=== PATIENT | female | born 1950 | race Caucasian/White ===

== ENCOUNTER 2018-04-18 07:49 | Inpatient (IN) | payer OTHER ==
[2018-04-18] MEDS: IPRATRPIUM/ALBUTEROL 0.5/2.5MG 3 ML NEBU. NEB ×6 (08:12→20:00)
[2018-04-18] MEDS: DEXAMETHASONE SOD PHOS 20 MG/5 ML VIAL. IM (08:47)
[2018-04-18 09:04] LABS: ADD MAN DIFF? NO
[2018-04-18 09:08] LABS: BASO % 0 % (0-3); EOS % 0 % (0-3); HEMATOCRIT 40.8 % (36.0-47.0); HEMOGLOBIN 13.8 g/dL (12.0-15.5); LYMPH # 0.5 x10^3/uL (1.0-4.8); LYMPH % 9 % (24-48); MEAN CORPUSCULAR HEMOGLOBIN 29 pg (25-35); MEAN CORPUSCULAR HGB CONC 34 g/dL (31-37); MEAN CORPUSCULAR VOLUME 86 fL (79-100); MONO # 0.5 x10^3/uL (0.0-1.1); MONO % 8 % (0-9); NEUT # 4.7 x10^3uL (1.8-7.7); NEUT % 82 % (31-73); PLATELET COUNT 255 x10^3/uL (140-400); RED BLOOD COUNT 4.74 x10^6/uL (3.50-5.40); RED CELL DISTRIBUTION WIDTH 14.7 % (11.5-14.5); WHITE BLOOD COUNT 5.7 x10^3/uL (4.0-11.0)
[2018-04-18 09:20] LABS: ANION GAP 9 (6-14); BLOOD UREA NITROGEN 5 mg/dL (7-20); BUN/CREATININE RATIO 7 (6-20); CALCIUM 8.6 mg/dL (8.5-10.1); CARBON DIOXIDE 26 mmol/L (21-32); CHLORIDE 93 mmol/L (98-107); CREATININE 0.7 mg/dL (0.6-1.0); GLUCOSE 162 mg/dL (70-99); POTASSIUM 3.5 mmol/L (3.5-5.1); SODIUM 128 mmol/L (136-145)
[2018-04-18 09:28] LABS: ALBUMIN 3.5 g/dL (3.4-5.0); ALK PHOS 94 U/L (46-116); ALT (SGPT) 19 U/L (14-59); AST (SGOT) 22 U/L (15-37); TOTAL BILIRUBIN 0.3 mg/dL (0.2-1.0); TOTAL PROTEIN 7.1 g/dL (6.4-8.2)
[2018-04-18] MEDS: AZITHRMYCN 500MG IVPB FOR OMNI 250 ML IV (10:20)
[2018-04-18] MEDS ORDERED: guaiFENesin DM 200MG/20MG 10 ML SYRUP PO (11:00)
[2018-04-18] MEDS ORDERED: IPRATRPIUM/ALBUTEROL 0.5/2.5MG 3 ML NEBU. NEB (12:00)
[2018-04-18] MEDS ORDERED: ALBUTEROL SULFATE 2.5 MG/3 ML NEBU. NEB (13:15)
[2018-04-18] MEDS: CYCLOBENZAPRINE 10 MG TABLET. PO ×2 (14:00→20:37)
[2018-04-18] MEDS: traMADol 50 MG TABLET PO ×2 (14:00→20:32)
[2018-04-18] MEDS: methylPREDNISolone SOD SUCC PF 40 MG/ML VIAL. IV ×2 (14:04→20:32)
[2018-04-18] MEDS: BENZONATATE 100 MG CAPSULE. PO ×2 (14:04→20:31)
[2018-04-18] MEDS: guaiFENesin DM 200MG/20MG 10 ML SYRUP PO ×2 (16:43→20:31)
[2018-04-18] MEDS: BUDESONIDE 0.5 MG/2 ML NEBU. NEB (20:00)
[2018-04-18] MEDS: HYDROcodone/APAP 5/325MG 1 TAB TABLET PO (22:48)
[2018-04-19] MEDS: IPRATRPIUM/ALBUTEROL 0.5/2.5MG 3 ML NEBU. NEB ×7 (00:03→23:29)
[2018-04-19] MEDS: methylPREDNISolone SOD SUCC PF 40 MG/ML VIAL. IV ×4 (06:03→22:27)
[2018-04-19] MEDS: ONDANSETRON PF 4 MG/2 ML VIAL. IV ×3 (07:16→19:36)
[2018-04-19] MEDS: BUDESONIDE 0.5 MG/2 ML NEBU. NEB ×2 (07:38→20:20)
[2018-04-19] MEDS: traMADol 50 MG TABLET PO ×3 (08:32→19:42)
[2018-04-19] MEDS: BENZONATATE 100 MG CAPSULE. PO ×3 (08:33→20:11)
[2018-04-19] MEDS: CYCLOBENZAPRINE 10 MG TABLET. PO ×3 (08:33→20:11)
[2018-04-19] MEDS ORDERED: NON FORMULARY ITEM (Tiotropium Bromide (Spiriva) 1 CAP) IH (09:00)
[2018-04-19] MEDS: HYDROcodone/APAP 5/325MG 1 TAB TABLET PO ×4 (09:13→20:11)
[2018-04-19] MEDS: cefTRIAXone IV Push 1 GM VIAL. IVP (09:13)
[2018-04-19] MEDS: guaiFENesin DM 200MG/20MG 10 ML SYRUP PO ×4 (13:00→20:11)
[2018-04-19] MEDS: MONTELUKAST SODIUM 10 MG TABLET. PO (20:10)
[2018-04-19] MEDS: LACTOBACILLUS RHAMNOSUS GG 1 CAPSULE. PO (20:10)
[2018-04-19] MEDS: ALPRAZolam 0.25 MG TABLET PO (20:11)
[2018-04-20] MEDS: IPRATRPIUM/ALBUTEROL 0.5/2.5MG 3 ML NEBU. NEB ×5 (04:00→19:24)
[2018-04-20] MEDS: BUDESONIDE 0.5 MG/2 ML NEBU. NEB ×2 (06:41→19:24)
[2018-04-20] MEDS: traMADol 50 MG TABLET PO (08:00)
[2018-04-20] MEDS: methylPREDNISolone SOD SUCC PF 40 MG/ML VIAL. IV ×3 (08:55→21:17)
[2018-04-20] MEDS: cefTRIAXone IV Push 1 GM VIAL. IVP (08:55)
[2018-04-20] MEDS: BENZONATATE 100 MG CAPSULE. PO ×3 (08:56→21:16)
[2018-04-20] MEDS: LACTOBACILLUS RHAMNOSUS GG 1 CAPSULE. PO ×2 (08:56→21:15)
[2018-04-20] MEDS: CYCLOBENZAPRINE 10 MG TABLET. PO ×3 (08:56→21:16)
[2018-04-20] MEDS: guaiFENesin DM 200MG/20MG 10 ML SYRUP PO ×4 (08:56→21:16)
[2018-04-20] MEDS: NAPROXEN 500 MG TABLET PO (16:30)
[2018-04-20] MEDS ORDERED: IBUPROFEN 400 MG TABLET. PO (17:00)
[2018-04-20] MEDS: cloNIDine HCL 0.1 MG TABLET PO (19:45)
[2018-04-20] MEDS: MONTELUKAST SODIUM 10 MG TABLET. PO (21:15)
[2018-04-20] MEDS: HYDROcodone/APAP 5/325MG 1 TAB TABLET PO (21:16)
[2018-04-21] MEDS: TEMAZEPAM 7.5 MG CAPSULE PO (00:11)
[2018-04-21] MEDS: ALPRAZolam 0.25 MG TABLET PO ×2 (00:11→22:12)
[2018-04-21] MEDS: IPRATRPIUM/ALBUTEROL 0.5/2.5MG 3 ML NEBU. NEB ×7 (04:00→23:18)
[2018-04-21] MEDS: methylPREDNISolone SOD SUCC PF 40 MG/ML VIAL. IV ×3 (06:17→22:18)
[2018-04-21] MEDS: BUDESONIDE 0.5 MG/2 ML NEBU. NEB ×2 (06:57→20:12)
[2018-04-21] MEDS: LACTOBACILLUS RHAMNOSUS GG 1 CAPSULE. PO ×2 (08:17→20:31)
[2018-04-21] MEDS: CYCLOBENZAPRINE 10 MG TABLET. PO ×3 (08:17→20:32)
[2018-04-21] MEDS: BENZONATATE 100 MG CAPSULE. PO ×3 (08:17→20:31)
[2018-04-21] MEDS: guaiFENesin DM 200MG/20MG 10 ML SYRUP PO ×4 (08:17→20:32)
[2018-04-21] MEDS: cefTRIAXone IV Push 1 GM VIAL. IVP (08:18)
[2018-04-21] MEDS: ALPRAZolam 0.5 MG TABLET PO (12:26)
[2018-04-21] MEDS: NICOTINE 21MG PATCH. TD (13:00)
[2018-04-21] MEDS: MONTELUKAST SODIUM 10 MG TABLET. PO (20:32)
[2018-04-21] MEDS: HYDROcodone/APAP 5/325MG 1 TAB TABLET PO (22:12)
[2018-04-22] MEDS: IPRATRPIUM/ALBUTEROL 0.5/2.5MG 3 ML NEBU. NEB ×6 (03:38→23:00)
[2018-04-22 05:27] LABS: ANION GAP 3 (6-14); BLOOD UREA NITROGEN 16 mg/dL (7-20); CALCIUM 8.6 mg/dL (8.5-10.1); CARBON DIOXIDE 36 mmol/L (21-32); CHLORIDE 94 mmol/L (98-107); CREATININE 0.9 mg/dL (0.6-1.0); GFR 62.8; GLUCOSE 120 mg/dL (70-99); MAGNESIUM 2.2 mg/dL (1.8-2.4); POTASSIUM 4.8 mmol/L (3.5-5.1); SODIUM 133 mmol/L (136-145)
[2018-04-22 05:37] LABS: TROPONINI < 0.017 ng/mL (0.000-0.055)
[2018-04-22 05:44] LABS: THYROID STIM HORMONE (TSH) 0.077 uIU/mL (0.358-3.74)
[2018-04-22] MEDS: methylPREDNISolone SOD SUCC PF 40 MG/ML VIAL. IV ×2 (06:05→13:57)
[2018-04-22] MEDS: BUDESONIDE 0.5 MG/2 ML NEBU. NEB ×2 (07:52→14:59)
[2018-04-22] MEDS: NICOTINE 21MG PATCH. TD (08:00)
[2018-04-22] MEDS: LACTOBACILLUS RHAMNOSUS GG 1 CAPSULE. PO ×2 (08:00→20:33)
[2018-04-22] MEDS: cefTRIAXone IV Push 1 GM VIAL. IVP (08:00)
[2018-04-22] MEDS: CYCLOBENZAPRINE 10 MG TABLET. PO ×3 (08:00→20:33)
[2018-04-22] MEDS: BENZONATATE 100 MG CAPSULE. PO ×3 (08:00→20:33)
[2018-04-22] MEDS: guaiFENesin DM 200MG/20MG 10 ML SYRUP PO ×4 (08:00→20:33)
[2018-04-22] MEDS: FLUTICASONE 50MCG/NASAL SPRAY 16GM BOTTLE. NS (08:00)
[2018-04-22] MEDS: CITALOPRAM 10 MG TABLET. PO ×2 (08:00→20:33)
[2018-04-22 12:05] LABS: FREE T4 0.96 ng/dL (0.76-1.46)
[2018-04-22] MEDS: GADOBUTROL 7.5 MMOL/7.5 ML VIAL IV (13:28)
[2018-04-22] MEDS: HYDROcodone/APAP 5/325MG 1 TAB TABLET PO (14:02)
[2018-04-22] MEDS: DOXYCYCLINE HYCLATE 100 MG TABLET PO (20:33)
[2018-04-22] MEDS: ALPRAZolam 0.25 MG TABLET PO (20:33)
[2018-04-22] MEDS: MONTELUKAST SODIUM 10 MG TABLET. PO (20:33)
[2018-04-22] MEDS: MECLIZINE HCL 12.5 MG TABLET. PO (20:48)
[2018-04-23] MEDS: IPRATRPIUM/ALBUTEROL 0.5/2.5MG 3 ML NEBU. NEB ×3 (03:20→11:17)
[2018-04-23] MEDS: BUDESONIDE 0.5 MG/2 ML NEBU. NEB (07:50)
[2018-04-23] MEDS: FLUTICASONE 50MCG/NASAL SPRAY 16GM BOTTLE. NS (07:58)
[2018-04-23] MEDS: predniSONE 20 MG TABLET PO (07:58)
[2018-04-23] MEDS: guaiFENesin DM 200MG/20MG 10 ML SYRUP PO ×2 (07:58→13:07)
[2018-04-23] MEDS: CYCLOBENZAPRINE 10 MG TABLET. PO ×2 (07:58→13:07)
[2018-04-23] MEDS: BENZONATATE 100 MG CAPSULE. PO ×2 (07:59→13:07)
[2018-04-23] MEDS: DOXYCYCLINE HYCLATE 100 MG TABLET PO (07:59)
[2018-04-23] MEDS: LACTOBACILLUS RHAMNOSUS GG 1 CAPSULE. PO (07:59)
[2018-04-23] MEDS: NICOTINE 21MG PATCH. TD (08:00)
[2018-04-23] MEDS: cloNIDine HCL 0.1 MG TABLET PO (10:57)
[2018-04-23] MEDS: ALPRAZolam 0.25 MG TABLET PO (11:36)
[2018-04-23] MEDS: LOSARTAN POTASSIUM 50 MG TABLET. PO (11:36)
[2018-04-23] MEDS: hydrALAZINE 20 MG/ML VIAL. IVP (11:38)
== END 2018-04-23 14:20 | disposition home or self-care (01) | DRG 190 ==
LOC: ER 07:49 → 6 SOUTH 09:30
DX: J44.1 Chronic obstructive pulmonary disease with (acute) exacerbation (principal); J96.01 Acute respiratory failure with hypoxia; R65.10 Systemic inflammatory response syndrome (SIRS) of non-infectious origin without acute organ dysfunction; I47.2 Ventricular tachycardia; E22.2 Syndrome of inappropriate secretion of antidiuretic hormone; J44.0 Chronic obstructive pulmonary disease with (acute) lower respiratory infection; F17.210 Nicotine dependence, cigarettes, uncomplicated; F32.9 Major depressive disorder, single episode, unspecified; F41.9 Anxiety disorder, unspecified; I10 Essential (primary) hypertension; I49.3 Ventricular premature depolarization; M19.90 Unspecified osteoarthritis, unspecified site; J20.9 Acute bronchitis, unspecified; J30.9 Allergic rhinitis, unspecified; Z82.49 Family history of ischemic heart disease and other diseases of the circulatory system; Z90.49 Acquired absence of other specified parts of digestive tract; Z99.81 Dependence on supplemental oxygen
CPT/HCPCS: 36415; 70450; 70553; 71046; 80048; 80053; 83735; 84439; 84443; 84481; 84484; 85025; 87040; 93005; 93306; 93880; 94618; 94640; 94760; 96365; 96372; 97116-GP; 97161-GP; 97165-GO; 97530-GP; 99285; 99285-25; A9585; J0360; J0456; J0690; J0696; J1100; J2405; J2920; J7512; J7620; J7626; J8597

== ENCOUNTER → 2018-07-18 | Outpatient (CLI) | payer OTHER ==
[2018-04-23 11:38] VITALS: BP 202/91
[~2018-07-18] MED LIST: ALBU0.63 NEB; ALPR0.254 PO; CITA10TA8 PO; CYCL10TA2 PO; DM H1CAP2 PO; DOXY100T PO; FLUT16SP NS; GUAI-40 PO; GUAI600T47 PO; HYDR-2758 PO; LOSA50TA2 PO; Nicotine 21MG TD; PRED20TA PO; TIOT18CA IH; TRAM50TA PO
--- NOTE | 2018-07-18 15:01 | RAD ---
EXAM: Chest CT without intravenous contrast. HISTORY: Shortness of breath. TECHNIQUE: Computed tomographic images of the chest were obtained without contrast. Multiplanar reformatting was performed. *One or more of the following individualized dose reduction techniques were utilized for this examination: 1. Automated exposure control. 2. Adjustment of the mA and/or kV according to patient size. 3. Use of iterative reconstruction technique. COMPARISON: 11/07/2007. FINDINGS: There is moderate apical predominant pulmonary emphysema with bilateral apical pleural-parenchymal scarring. There is no pneumothorax or pleural effusion. There is no infiltrate or suspicious pulmonary nodule. There is lingular and right middle lobe atelectasis or scarring. The heart is normal in size. There is aortic and coronary artery atherosclerosis. There is no lymphadenopathy. There are few small hypodense lesions within the liver, the largest of which measures 10 mm. The stability of these lesions favors a benign etiology such as cysts or hemangiomas. There is stable thickening of the left adrenal gland without a discrete nodule. There is a 4.1 cm left renal cyst. There is no suspicious osseous lesion. There is a chronic mild superior endplate compression fracture with Schmorl's node at T12. IMPRESSION: 1. Moderate pulmonary emphysema with apical pleural parenchymal scarring. 2. No acute intrathoracic finding. 3. Several small hypodense lesions within the liver. The greater than 10 year course of stability of these lesions favors a benign etiology such as cysts or hemangiomas. 4. Simple left renal cyst. Electronically signed by: Fely Wilkinson MD (07/18/2018 2:57 PM) [id number]
== END | disposition home or self-care (01) ==
LOC: CT 09:02
PROVIDERS: ATTEND Internal Medicine Pulmonary Disease
DX: J43.8 Other emphysema (principal); K76.89 Other specified diseases of liver; N28.1 Cyst of kidney, acquired; M48.54XD Collapsed vertebra, not elsewhere classified, thoracic region, subsequent encounter for fracture with routine healing; M51.44 Schmorl's nodes, thoracic region; I25.10 Atherosclerotic heart disease of native coronary artery without angina pectoris; I10 Essential (primary) hypertension; F17.210 Nicotine dependence, cigarettes, uncomplicated; Z90.49 Acquired absence of other specified parts of digestive tract; Z82.49 Family history of ischemic heart disease and other diseases of the circulatory system
CPT/HCPCS: 71250

== ENCOUNTER → 2019-09-17 | Outpatient (CLI) | payer OTHER ==
[2018-04-23 11:38] VITALS: BP 202/91
[~2019-09-17] MED LIST changes: -HYDR-2758 PO; +HYDR-2761 PO; +LOSA-73 PO; -LOSA50TA2 PO
--- NOTE | 2019-09-17 13:36 | RAD ---
Examination: CT CHEST WO CONTRAST History: Lung nodules Comparison/Correlation: 07/18/2018 CT chest without contrast, 11/07/2007 CT chest with contrast Findings: Axial images of chest were obtained without contrast. Sagittal and coronal reformatted images were provided. Emphysematous bones or lung brian noted especially at the lung apices. Pulmonary hyperinflation is present. No suspicious pulmonary nodule or mass. Biapical pleural thickening is unchanged. No enlarged thoracic lymph nodes. No pleural or pericardial effusion. Bony thorax is unremarkable. Left renal superior pole cyst again seen. Small hypodense lesions involving the liver are stable likely representing cysts. Impression: Emphysema. COPD. No suspicious pulmonary nodule or new infiltrate. PQRS Compliance Statement: One or more of the following individualized dose reduction techniques were utilized for this examination: 1. Automated exposure control 2. Adjustment of the mA and/or kV according to patient size 3. Use of iterative reconstruction technique Electronically signed by: Alfonso Jiang MD (09/17/2019 1:33 PM) [facility]
== END | disposition home or self-care (01) ==
LOC: CT 09:48
PROVIDERS: ATTEND Internal Medicine Pulmonary Disease
DX: J43.9 Emphysema, unspecified (principal); N28.1 Cyst of kidney, acquired; K76.89 Other specified diseases of liver
CPT/HCPCS: 71250